=== PATIENT | female | born 2000 | race Caucasian/White ===

== ENCOUNTER → 2021-05-13 12:58 | Outpatient (BNVA) | payer MEDICAID, SELFPAY | PROVIDERS: Visit Provider Specialist | DX: F81.9 Developmental disorder of scholastic skills, unspecified (principal); R56.9 Unspecified convulsions | CPT/HCPCS: 95816 ==

== ENCOUNTER → 2021-05-14 09:58 | Outpatient (BNVA) | payer MEDICAID, SELFPAY | PROVIDERS: Referring Provider Nurse Practitioner Family; Visit Provider Specialist | DX: S42.001A Fracture of unspecified part of right clavicle, initial encounter for closed fracture (principal); X58.XXXA Exposure to other specified factors, initial encounter | CPT/HCPCS: 73000 ==

== ENCOUNTER → 2021-06-10 08:54 | Outpatient (BNVA) | payer MEDICAID, SELFPAY | PROVIDERS: Visit Provider Specialist | DX: S42.034A Nondisplaced fracture of lateral end of right clavicle, initial encounter for closed fracture (principal); X58.XXXA Exposure to other specified factors, initial encounter | CPT/HCPCS: 73000 ==

== ENCOUNTER 2021-07-28 13:22 | Emergency (ER) | payer MEDICAID, SELFPAY ==
[2021-07-28 13:50] VITALS: BP 120/84; PULSE 87; RESP 16; TEMP 36.9; O2SAT 98; BMI 31.7
--- NOTE | 2021-07-28 14:00 | ED_ITS ---
HPI - Head Injury General: Chief complaint: Head Injury Stated complaint: H/A AFTER FALL HITTING HEAD Time Seen by Provider: 07/28/21 13:32 History of Present Illness: HPI Narrative: Patient is a 21-year-old female comes to the ED with a head injury after fall. Head injury occurred yesterday. She was bending over and lost balance and fell forward and hit her forehead on the ground. Denies any loss of consciousness. Patient does have a headache and a contusion on forehead. Denies any vomiting or change in behavior. Mother is present says patient does have a mental disability and seizures. Associated symptoms: Deny nausea, neck pain or vomiting Review of Systems Const: Denies: fever(s), chills or fatigue Eyes: Denies: change in vision or eye discomfort ENMT: Denies: throat pain, odynophagia, nasal discharge or nasal congestion Card: Denies: chest pain, palpitations, edema, swelling of feet/ankles, dyspnea on exertion or orthopnea Resp: Denies: dyspnea, productive cough or non-productive cough GI: Denies: abdominal pain, nausea, vomiting, diarrhea, constipation or hematochezia : Denies: flank pain, dysuria or hematuria Musc: Denies: neck pain, back pain or extremity swelling Skin/Breast: Denies: rash or new lesions Neuro: Reports: headache(s); Denies: numbness in extremities or weakness in extremities PFSH ED PFSH: Medical History Learning disability Seizures Surgical History Gastrostomy tube in place removed 10/13/20 Family History Sister Cancer breast Other CAD (coronary artery disease) Denies family history of Diabetes Anesthesia complication Bleeding disorder Social History Smoking and tobacco status: never smoked Alcohol intake: never Household members: family Marital status: Single Current occupational status: disabled Female Reproductive History: Date of last menstrual period: 07/24/21 Physical Exam Const: COMMON NORMALS: no acute distress, patient oriented x3 and alert EXAM LIMITATIONS: other limitations (Patient has mental disability.) GENERAL APPEARANCE: cooperative and comfortable HENMT: COMMON NORMALS: normocephalic HEAD & SCALP: normocephalic and hematoma right frontal Head hematoma size: 1 cm MOUTH: Normal oral and palatal mucosa present THROAT: posterior oropharynx normal and uvula midline Eye: COMMON NORMALS: Equal, round and reactive pupils present, EOMs intact bilaterally and conjunctivae normal CONJUNCTIVA: Yes conjunctivae normal PUPIL: Yes Equal, round and reactive pupils present Neck/C-Spine: COMMON NORMALS: supple GENERAL: Yes normal visual inspection Resp: COMMON NORMALS: normal respiratory effort, No retractions, No use of a ccessory muscles and clear to auscultation bilaterally AUSCULTATION: clear to auscultation bilaterally Cardio: COMMON NORMALS: regular rate, regular rhythm, S1 normal heart sound present, S2 normal heart sound present, No gallops present (Cardio), No clicks present (Cardio), No murmurs present (Cardio) and Peripheral pulses 2+ throughout RATE: regular rate RHYTHM: regular rhythm HEART SOUNDS: S1 normal heart sound present and S2 normal heart sound present PERIPHERAL PULSES: Peripheral pulses 2+ throughout GI: COMMON NORMALS: Normal to inspection, nondistended, normoactive bowel sounds present, Soft to palpation, non-tender and no masses PALPATION: Yes Soft to palpation : COMMON NORMALS: Yes no CVA tenderness BLADDER/KIDNEY EXAM: Yes no CVA tenderness Back/Pelvis: COMMON NORMALS: no CVA tenderness Extremity: COMMON NORMALS: normal to inspection Neuro: COMMON NORMALS: patient oriented x3 and moves all extremities SENSORIUM/ORIENTATION: Yes alert Skin: GENERAL SKIN EXAM: dry skin Course Vital Signs: Vital signs: Vital Signs Temperature 98.5 F 07/28/21 13:50 Pulse Rate 87 07/28/21 14:04 Respiratory Rate 16 07/28/21 14:04 Blood Pressure 120/84 07/28/21 14:04 Pulse Oximetry 95 07/28/21 14:04 MDM - Head Injury MDM Narrative: Medical decision making narrative: Patient is a 21-year-old female comes to the ED after she fell and hit her head. Patient was leaning forward to pick something up and then fell forward hitting her head on the ground. No loss of consciousness and patient is just been complaining of having a headache and a sore spot on right frontal region of scalp. Patient has a past medical history of mental disability and seizures. Patient has a small right frontal hematoma approximately 1 cm in size. Vitals are stable. CT of head showed no acute findings. Patient was diagnosed with a minor head injury w ithout loss of consciousness and discharged home. Mother was told to have patient follow-up with PCP in 7 to 10 days for reevaluation. Return to ED precautions given. Patient and patient's mother understood and agreed with plan. Imaging Data^: CT Head: Attestation: I personally reviewed and interpreted this imaging study as follow s: Radiologist's impression: [facility] [address] [place] [address] CT Scan Report Signed Patient: Padmini Zimmerman Unit #: [id number] : 2000 Age/Sex: 21 / F ADM Date: 07/28/21 Loc: ER Room/Bed: Attending Dr: Ordering Provider/Ordering MD: Sohan aRmsay Date of Service: 07/28/21 Procedure(s): CT head wo con* [id number] Accession Number(s): [id number] Report Number: [id number] PROCEDURE INFORMATION: Exam: CT Head Without Contrast Exam date and time: 07/28/2021 1:59 PM Age: 21 years old Clinical indication: Injury or trauma; Fall; Blunt trauma (contusions or hematomas); Without loss of consciousness; Injury details: Hit right side of forehead; Additional info: Fall with hematoma on head TECHNIQUE: Imaging protocol: Computed tomography of the head without contrast. Axial, coronal and sagittal reformatted images were created and reviewed. Radiation optimization: All CT scans at this facility use at least one of these dose optimization techniques: automated exposure control; mA and/or kV adjustment per patient size (includes targeted exams where dose is matched to clinical indication); or iterative reconstruction. COMPARISON: No relevant prior studies available. RADIATION DOSE METRICS: Total DLP (mGy-cm): 709.27 FINDINGS: Brain: No CT evidence of acute intracranial hemorrhage or acute territorial infarction. No significant mass effect or midline shift. Basal cisterns patent. Cerebral ventricles: Prominence of the cortical sulci, cisterns and ventricular system, consistent with cerebral and cerebellar volume loss. Paranasal sinuses: Minimal ethmoid mucosal thickening. No fluid levels. Mastoid air cells: Grossly unremarkable. Bones/joints: No acute osseous abnormality. Soft tissues: Grossly unremarkable. CT/CT head wo con* [id number]: 1[address] No CT evidence of acute intracranial pathology. 2. Additional findings, as above. Radiation Dose CTDIVOL = (mGy): DLP = 709.27 (mGy-cm) Dictated By: Santy Lau MD Signed By: Santy Lau MD Signed Date/Time: 07/28/21 1510 DD/ 1359 Discharge Plan Discharge Patient Disposition: Home Clinical Impression: Minor head injury without loss of consciousness Qualifiers: Encounter type: initial encounter Qualified Code(s): S09.90XA - Unspecified injury of head, initial encounter Condition: Stable Prescriptions: No Action levetiracetam [Keppra] 750 mg tablet 1,500 mg PO BID RF: 0 Vimpat 200 mg tablet 200 mg PO BID RF: 0 valproic acid 250 mg capsule 750 mg PO TID RF: 0 Discharge Orders: Discharge ED (Routine); Ordered 07/28/21 Ordered By: Sohan Ramsay Referrals: Keesha Jorgensen [Primary Care Provider] - Discharge Diet: Regular Discharge Activity: Resume usual activity Patient Instructions: Head Injury (ED) Activity Restrictions/Additional Instructions: Follow-up with medical provider as directed in 7 to 10 days for reevaluation. Continue taking all home medications as previously prescribed. Return to the ER or your medical provider if condition worsens. Please read and understand discharge instructions. Thank you for choosing [facility] for your healthcare needs today. Please realize this is an emergency room and that we are providing you with a medical screening exam and this may not be complete and all inclusive of all the testing and or work up that you may need to determine your ailment or severity of your illness. It is very important that you follow up as instructed or that you return to the Emergency Department should you have concerns or if your condition changes or worsens in any way. Coding Level of Care Code ED Rail Signal Designer for Parth Rosario Exam Comprehensive
[2021-07-28 14:04] VITALS: BP 120/84; PULSE 87; RESP 16; O2SAT 95
== END 2021-07-28 15:55 | disposition home or self-care (01) ==
PROVIDERS: Emergency Provider Physician Assistant; PCP Internal Medicine
DX: S00.83XA Contusion of other part of head, initial encounter (principal); W18.30XA Fall on same level, unspecified, initial encounter; R56.9 Unspecified convulsions; F81.9 Developmental disorder of scholastic skills, unspecified
CPT/HCPCS: 70450; 99282

== ENCOUNTER 2021-10-15 16:21 | Emergency (ER) | payer MEDICAID, SELFPAY ==
[2021-10-15 16:30] VITALS: BP 115/80; PULSE 90; RESP 14; TEMP 36.6; O2SAT 98
--- NOTE | 2021-10-15 16:40 | XR_ITS ---
WS: [id number] [id number] REASON FOR EXAM: fall FINDINGS: Significant deformity and bony overgrowth of the distal end of the right clavicle. This is a result o f a previous fracture of the right clavicle, 05/05/2021, with healing. No definite acute abnormality. XR/[place] [id number] IMPRESSION: Old healed fracture distal right clavicle. Acute abnormality.
--- NOTE | 2021-10-15 16:40 | XR_ITS ---
WS: [id number] [id number] REASON FOR EXAM: fall FINDINGS: No fracture of the right humerus. Normal alignment of the glenohumeral joint. XR/[place] [id number] IMPRESSION: No acute abnormality.
--- NOTE | 2021-10-15 16:40 | W.ED.EXTPRO ---
HPI - Extremity Problem General: Chief complaint: Extremity Injury, Upper Stated complaint: right shoulder injury Time Seen by Provider: 10/15/21 16:37 History of Present Illness: HPI Narrative: Patient fell yesterday injuring right shoulder. Patient had a seizure which she has on a fairly frequent basis. Patient is not verbalizing but does point to the upper arm area that hurts and then mother says that her clavicle seems more pronounced. MD Complaint: extremity pain Onset (ago): hour(s) Pain Consistency: other (Hard to determine) Location: right and upper extremity Associated symptoms: Deny fever(s) Review of Systems Const: Denies: fever(s) or chills Resp: Denies: dyspnea Musc: Reports: extremity pain (Upper part right arm from a fall yesterday) Neuro: Denies: headache(s), lack of coordination or difficulty walking PFS ED PFSH: Medical History Learning disability Seizures Surgical History Gastrostomy tube in place removed 10/13/20 Family History Sister Cancer breast Other CAD (coronary artery disease) Denies family history of Diabetes Anesthesia complication Bleeding disorder Social History Smoking and tobacco status: never smoked Alcohol intake: never Household members: family Marital status: Single Current occupational status: disabled Female Reproductive History: Date of last menstrual period: 07/24/21 Physical Exam Const: COMMON NORMALS: no acute distress GENERAL APPEARANCE: cooperative Extremity: RIGHT UPPER EXTREMITY: Yes clavicle (Bony aspect to the proximal aspect of the clavicle.) Right clavicle: Yes neurovascular exam (Intact) and Yes other (I am able to move the arm freely. Patient does not wince or pull away) and Yes upper arm (Tenderness with palpation , no marked swelling) Neuro: RANJITH COMA SCALE: other (Patient is not verbalizing to me., , Patient appears very shy, is disabled) Skin: COMMON NORMALS: no rashes or lesions noted GENERAL SKIN EXAM: no rashes or lesions noted Course Vital Signs: Vital signs: Vital Signs Temperature 97.9 F 10/15/21 16:30 Pulse Rate 90 10/15/21 16:30 Respiratory Rate 14 10/15/21 16:30 Blood Pressure 115/80 10/15/21 16:30 Pulse Oximetry 98 10/15/21 16:30 Discharge Plan Discharge Patient Disposition: Home Clinical Impression: Arm pain, right Condition: Stable Prescriptions: New Celebrex 100 mg capsule 100 mg PO BID Qty: 20 RF: 0 No Action levetiracetam [Keppra] 750 mg tablet 1,500 mg PO BID RF: 0 Vimpat 200 mg tablet 200 mg PO BID RF: 0 valproic acid 250 mg capsule 750 mg PO TID RF: 0 Discharge Orders: Discharge ED (Routine); Ordered 10/15/21 Ordered By: Chuy Lopez Referrals: Keesha Jorgensen [Primary Care Provider] - Discharge Diet: Usual diet Discharge Activity: Increase activity as tolerated Activity Restrictions/Additional Instructions: Follow-up with medical provider as directed. Take medications as prescribed. Return to the ER or your medical provider if condition worsens. Please read and understand discharge instructions. If any questions ask please. Wear sling as needed follow-up primary care provider apply ice to area as needed. Coding Level of Care Code ED Labor Operator for Chg Fwd Exam Expanded Problem Focused
== END 2021-10-15 17:22 | disposition home or self-care (01) ==
PROVIDERS: Emergency Provider Nurse Practitioner Family; PCP Internal Medicine
DX: M79.601 Pain in right arm (principal)
CPT/HCPCS: 73000; 73060; 99282

== ENCOUNTER 2021-11-12 13:55 | Emergency (ER) | payer MEDICAID, SELFPAY ==
[2021-11-12 14:36] VITALS: BP 135/90; PULSE 94; RESP 20; TEMP 36.6; O2SAT 98; BMI 30.8
--- NOTE | 2021-11-12 17:05 | ED_ITS ---
HPI - Skin/Abscess/Foreign Bdy General: Chief complaint: Skin/Abscess/Foreign Body Stated complaint: Possible infection on both feet Toes Time Seen by Provider: 11/12/21 17:04 History of Present Illness: 21-year-old female patient comes in today with complaints of pain and tenderness to bilateral great toes, worse when it is on the right. Mother reports chronic problem with ingrown toenails. They have tried some topical antibiotics and different therapies with minimal relief. M other was concerned that patient may be having a worsening infection due to patient's increased pain and discomfort. Patient does have a history of learning disabilities and epilepsy. Review of Systems General: Reports: 10 or more systems reviewed and unremarkable except in HPI and below Musc: Reports: extremity pain (Right foot pain) Skin/Breast: Reports: erythema PFSH ED PFSH: Medical History Learning disability Seizures Surgical History Gastrostomy tube in place removed 10/13/20 Family History Sister Cancer breast Other CAD (coronary artery disease) Denies family history of Diabetes Anesthesia complication Bleeding disorder Social History Smoking and tobacco status: never smoked Alcohol intake: never Household members: family Marital status: Single Current occupational status: disabled Female Reproductive History: Date of last menstrual period: 07/24/21 Physical Exam Const: COMMON NORMALS: alert Lymph: LYMPHATIC: no lymphadenopathy noted Resp: COMMON NORMALS: normal respiratory effort Cardio: COMMON NORMALS: regular rate and regular rhythm RATE: regular rate RHYTHM: regular rhythm Extremity: RIGHT LOWER EXTREMITY: Yes foot & digits (Increased redness and inflammation bilateral nailbed) Right foot and digits: Yes inspection, Yes palpation and Yes ROM LEFT LOWER EXTREMITY: Yes foot & digits (Mild redness to lateral nailbed of great toe) Left foot and digits: Yes inspection, Yes palpation and Yes ROM Neuro: SENSORIUM/ORIENTATION: Yes alert Psych: COMMON NORMALS: cooperative Skin: NAILS: normal Course Vital Signs: Vital signs: Vital Signs Temperature 97.9 F 11/12/21 14:36 Pulse Rate 94 11/12/21 14:36 Respiratory Rate 20 H 11/12/21 14:36 Blood Pressure 135/90 11/12/21 14:36 Pulse Oximetry 98 11/12/21 14:36 MDM - Skin/Abscess/Foreign Bdy Medicial Decision Making 21-year-old female comes in with ingrown toenails with increased redness and pain to the right foot. On exam patient has redness and swelling to the right great toe that is just localized to the nail area. Left great toe also has some mild redness but not as significant as the right. No redness extends to the foot or to the leg. Pulses are intact. Sensation is intact. Differential diagnosis ingrown toenail with infections, uncomplicated ingrown toenail, injury. No sign of significant injury or illness is noted. We will go ahead and start patient on Bactrim DS 1 tablet twice a day for next 7 days to cover for MRSA. Reviewed exam with mother with recommendations for follow-up with podiatry for further treatment of the ingrown toenail. Mother reports understanding and agreed to plan. Discharge Plan Discharge Patient Disposition: Home Clinical Impression: Ingrown toenail of right foot with infection Condition: Stable Prescriptions: New Bactrim DS 800-160 mg tablet 1 tab PO DAILY 7 Days Qty: 14 0RF No Action levetiracetam [Keppra] 750 mg tablet 1,500 mg PO BID 0RF Vimpat 200 mg tablet 200 mg PO BID 0RF valproic acid 250 mg capsule 750 mg PO TID 0RF Celebrex 100 mg capsule 100 mg PO BID Qty: 20 0RF Discharge Orders: Discharge ED (Routine); Ordered 11/12/21 Ordered By: Harjeet Stern Referrals: Keesha Jorgensen [Primary Care Provider] - Discharge Diet: Usual diet Discharge Activity: Increase activity as tolerated Patient Instructions: Ingrown Nail (ED) Activity Restrictions/Additional Instructions: Ten you with soaking treatments at home as you have been doing. Give Bactrim DS 1 tablet twice a day for the next 5 to 7 days. Case management will contact you regarding follow-up appointment with podiatry for further treatment. Return to the ER for new concerns or worsening symptoms such as high fever, increasing redness and swelling going up the foot and leg. Coding Level of Care Code ED Manager Recovery for Parth Rosario
--- NOTE | 2021-11-13 11:34 | DCPLANNER ---
Addendum entered by Fatuma Balderas 11/27/21 22:22: Patient had a follow up appointment scheduled for 11.16.[address] Wan at ortho - patient did attend appointment. Original Note: amusement centre manager had message to schedule a follow up appointment for patient with ortho. amusement centre manager called the ortho clinic, spoke with Lani, gave clinic patients information. amusement centre manager was told that patients information would be printed and reviewed. Clinic will call patient with appointment information.
== END 2021-11-12 18:04 | disposition home or self-care (01) ==
PROVIDERS: Emergency Provider Nurse Practitioner Family; PCP Internal Medicine
DX: L60.0 Ingrowing nail (principal)
CPT/HCPCS: 99281

== ENCOUNTER 2021-12-25 22:30 | Emergency (ER) | payer MEDICAID, SELFPAY ==
[2021-12-25 22:35] VITALS: BP 122/86; PULSE 85; RESP 96; TEMP 36.8; O2SAT 96; BMI 31.3
--- NOTE | 2021-12-25 23:35 | CTR_ITS ---
PROCEDURE INFORMATION: Exam: CT Head Without Contrast Exam date and time: 12/25/2021 11:46 PM Age: 21 years old Clinical indication: Injury or trauma; Blunt trauma (contusions or hematomas); Consciousness not specified; Patient HX: Drop seizure w fall - abrasion to R forehead; Additional info: Fall head inj TECHNIQUE: Imaging protocol: Computed tomography of the head without contrast. Radiation optimization: All CT scans at this facility use at least one of these dose optimization techniques: automated exposure control; mA and/or kV adjustment per patient size (includes targeted exams where dose is matched to clinical indication); or iterative reconstruction. COMPARISON: CT head wo con* [id number] 07/28/2021 2:40 PM RADIATION DOSE METRICS: Total DLP (mGy-cm): 965.01 FINDINGS: Brain: Normal. No hemorrhage. Unremarkable white matter. No mass effect. Cerebral ventricles: No ventriculomegaly. Paranasal sinuses: Visualized sinuses are unremarkable. No fluid levels. Mastoid air cells: Visualized mastoid air cells are well aerated. Bones/joints: No acute findings. Soft tissues: Mild soft tissue swelling lower frontal region. CT/CT head wo con* [id number] IMPRESSION: No acute intracranial abnormality.
--- NOTE | 2021-12-25 23:40 | ED_ITS ---
Documented by User: TREV Perez 12/26/21 00:58 HPI - Fall General: Chief Complaint: Fall Stated Complaint: Injury Head Time Seen by Provider: 12/25/21 23:39 History of Present Illness: 21-year-old female comes in today with complaints of injury sustained during a fall. Patient has difficulties with ambulation at times and has frequent falls due to seizures and learning disability. Guardian reports this is not abnormal for her. Patient was walking with guardian tonight and usually has to wear a helmet just in case but had gone without her helmet. Patient had fallen forward and had struck the right side of her forehead. No loss of consciousness was noted. No obvious seizures were noted. Patient is alert and responding to questions. Patient appears nontoxic. Patient appears in mild to no pain. Onset (ago): hour(s) Fall from: standing Loss of consciousness: None Location of injury: head Severity: mild Associated symptoms-after fall: Reports headache(s); Denies chest pain or neck pain Review of Systems General: Reports: 10 or more systems reviewed and unremarkable except in HPI and below Const: Denies: fever(s) Card: Denies: chest pain Resp: Denies: dyspnea Musc: Denies: neck pain Skin/Breast: Reports: new lesions (Abrasion right forehead) Neuro: Reports: headache(s) PFS ED PFSH: Medical History Learning disability Seizures Surgical History Gastrostomy tube in place removed 10/13/20 Family History Sister Cancer breast Other CAD (coronary artery disease) Denies family history of Diabetes Anesthesia complication Bleeding disorder Social History Smoking and tobacco status: never smoked Alcohol intake: never Household members: family Marital status: Single Current occupational status: disabled Female Reproductive History: Date of last menstrual period: 07/24/21 Physical Exam Const: COMMON NORMALS: alert HENMT: COMMON NORMALS: TM's normal bilaterally and Normal external nose present HEAD & SCALP: abrasion (Right forehead); no palpable skull fracture FACE & SINUS: normal facial exam NOSE: Normal external nose present and Normal nares present TYMPANIC MEMBRANE: TM's normal bilaterally MOUTH: Normal oral and palatal mucosa present THROAT: posterior oropharynx normal Neck/C-Spine: COMMON NORMALS: full ROM Resp: COMMON NORMALS: normal respiratory effort and clear to auscultation bilaterally AUSCULTATION: clear to auscultation bilaterally Cardio: COMMON NORMALS: regular rate and regular rhythm RATE: regular rate RHYTHM: regular rhythm GI: COMMON NORMALS: Normal to inspection, nondistended, normoactive bowel sounds present Extremity: COMMON NORMALS: normal to inspection Neuro: SENSORIUM/ORIENTATION: Yes alert Psych: COMMON NORMALS: cooperative Skin: TRAUMA: abrasion (4 x 2 area of abrasion right forehead) Course Vital Signs: Vital signs: Vital Signs Temperature 98.2 F 12/25/21 22:35 Pulse Rate 85 12/26/21 00:03 Respiratory Rate 16 12/26/21 00:03 Blood Pressure 131/89 12/26/21 00:03 Pulse Oximetry 99 12/26/21 00:03 MDM - Fall Medical Decision Making 21-year-old female comes in for evaluation of injuries that occurred at around 7:00 this evening. Patient has an abrasion to her right forehead. No loss of consciousness was noted. Differential diagnosis includes intracranial bleeding, skull fracture, head injury, seizure disorder. Patient does routinely have seizures mother reports that she may have had a absence seizure but did not see a full grand mall seizure. Patient is acting appropriate. CT of the head was negative for intracranial bleeding or skull fracture. Reviewed exam with mother with recommendations for monitoring and follow-up. She reported understanding agreed to plan. Lab Data Radiology Impressions Head CT 12/25/21 23:35 IMPRESSION: No acute intracranial abnormality. Discharge Plan Discharge Patient Disposition: Home Clinical Impression: Seizures Head injury Qualifiers: Encounter type: initial encounter Qualified Code(s): S09.90XA - Unspecified injury of head, initial encounter Abrasion of face Qualifiers: Encounter type: initial encounter Qualified Code(s): S00.81XA - Abrasion of other part of head, initial encounter Condition: Stable Prescriptions: No Action levetiracetam [Keppra] 750 mg tablet 1,500 mg PO BID 0RF Vimpat 200 mg tablet 200 mg PO BID 0RF valproic acid 250 mg capsule 750 mg PO TID 0RF mupirocin 2 % ointment 1 applic topical BID 14 Days Qty: 22 2RF mupirocin 2 % ointment 1 applic topical BID 14 Days Qty: 22 2RF mupirocin 2 % ointment 1 applic topical BID 30 Days Qty: 22 2RF Celebrex 100 mg capsule 100 mg PO BID Qty: 20 0RF Discharge Orders: Discharge ED (Routine); Ordered 12/26/21 Ordered By: Harjeet Stern Referrals: Keesha Jorgensen [Primary Care Provider] - Discharge Diet: Usual diet Discharge Activity: Increase activity as tolerated Patient Instructions: Abrasion (ED) Activity Restrictions/Additional Instructions: Activity as tolerated. Keep wounds clean and dry. Use acetaminophen or ibuprofen for pain. Follow-up with primary care in 3 days for recheck. Return to ED as needed. Coding Level of Care Code ED Park Worker for Chg Fwd Exam Comprehensive Documented by User: Miguel Whittington DO 12/26/21 01:27 HPI - Fall General: Chief Complaint: Fall Stated Complaint: Injury Head Time Seen by Provider: 12/25/21 23:39 COUNTS INCLUDE 234 BEDS AT THE [facility] ED PFSH: Medical History Learning disability Seizures Surgical History Gastrostomy tube in place removed 10/13/20 Family History Sister Cancer breast Other CAD (coronary artery disease) Denies family history of Diabetes Anesthesia complication Bleeding disorder Social History Smoking and tobacco status: never smoked Alcohol intake: never Household members: family Marital status: Single Current occupational status: disabled Course Vital Signs: Vital signs: Vital Signs Temperature 98.2 F 12/25/21 22:35 Pulse Rate 85 12/26/21 00:03 Respiratory Rate 16 12/26/21 00:03 Blood Pressure 131/89 03/26/22 00:03 Pulse Oximetry 99 12/26/21 00:03 MDM - Fall Medical Decision Making 21-year-old female comes in for evaluation of injuries that occurred at around 7:00 this evening. Patient has an abrasion to her right forehead. No loss of consciousness was noted. Differential diagnosis includes intracranial bleeding, skull fracture, head injury, seizure disorder. Patient does routinely have seizures mother reports that she may have had a absence seizure but did not see a full grand mall seizure. Patient is acting appropriate. CT of the head was negative for intracranial bleeding or skull fracture. Reviewed exam with mother with recommendations for monitoring and follow-up. She reported understanding agreed to plan. This patient was originally seen by TREV Chamberlain.? I agree with his history, evaluation, and treatment. Lab Data Radiology Impressions Head CT 12/25/21 23:35
[2021-12-26 00:03] VITALS: BP 131/89; PULSE 85; RESP 16; O2SAT 99
[2021-12-26] MEDS: acetaminophen 500 mg Tablet 1000 MG PO (00:13)
== END 2021-12-26 01:06 | disposition home or self-care (01) ==
PROVIDERS: Emergency Provider Nurse Practitioner Family; PCP Internal Medicine
DX: S00.81XA Abrasion of other part of head, initial encounter (principal); S09.90XA Unspecified injury of head, initial encounter; R56.9 Unspecified convulsions; W18.30XA Fall on same level, unspecified, initial encounter
CPT/HCPCS: 70450; 99283

== ENCOUNTER → 2022-02-11 08:26 | Outpatient (BNVA) | payer MEDICAID, SELFPAY | PROVIDERS: PCP Internal Medicine; Visit Provider Podiatrist Foot & Ankle Surgery | DX: L60.0 Ingrowing nail (principal) | CPT/HCPCS: 11750 ==

== ENCOUNTER → 2022-02-25 08:12 | Outpatient (BNVA) | payer MEDICAID, SELFPAY | PROVIDERS: PCP Internal Medicine; Visit Provider Podiatrist Foot & Ankle Surgery | DX: L60.0 Ingrowing nail (principal); Z98.890 Other specified postprocedural states | CPT/HCPCS: 99213 ==

== ENCOUNTER 2022-06-27 16:44 | Emergency (ER) | payer MEDICAID, SELFPAY ==
[2022-06-27 16:45] VITALS: BMI 30.4
--- NOTE | 2022-06-27 17:03 | ED_ITS ---
HPI - Headache General: Chief Complaint: Headache Stated Complaint: fall, hit head, head pain Time Seen by Provider: 06/27/22 16:56 History of Present Illness: 22-year-old female with a history of learning disability and seizures comes in today with concerns for head injury and compla ints of headache. Mother is concerned that the child may have injured herself during one of her drop spells yesterday or today. Mother states that the family has been under more stress due to some issues with a neighbor that has caused more of the child's seizure-like episodes. On exam patient appears nontoxic. Patient is withdrawn which is normal for her. No obvious injury is seen. Associated symptoms: Deny chest pain, fever(s) or vomiting Review of Systems Const: Denies: fever(s) Card: Denies: chest pain Resp: Denies: dyspnea GI: Denies: vomiting Neuro: Reports: headache(s) [facility] ED PFSH: Medical History Learning disability Seizures Surgical History Gastrostomy tube in place removed 10/13/20 Family History Sister Cancer breast Other CAD (coronary artery disease) Denies family history of Diabetes Anesthesia complication Bleeding disorder Social History Smoking and tobacco status: never smoked Alcohol intake: never Household members: family Marital status: Single Current occupational status: disabled Female Reproductive History: Date of last menstrual period: 06/06/22 Physical Exam Const: COMMON NORMALS: alert HENMT: COMMON NORMALS: atraumatic, TM's normal bilaterally and Normal external nose present HEAD & SCALP: atraumatic NOSE: Normal external nose present TYMPANIC MEMBRANE: TM's normal bilaterally MOUTH: Normal oral and palatal mucosa present Neck/C-Spine: COMMON NORMALS: full ROM Resp: COMMON NORMALS: normal respiratory effort Cardio: COMMON NORMALS: regular rate RATE: regular rate Back/Pelvis: COMMON NORMALS: thoracic and lumbar spine normal to inspection Extremity: COMMON NORMALS: normal to inspection Neuro: SENSORIUM/ORIENTATION: Yes alert Skin: COMMON NORMALS: turgor normal GENERAL SKIN EXAM: turgor normal Course Vital Signs: Vital signs: Vital Signs Oxygen Delivery Me valeriood 06/27/22 16:45 MDM - Headache Medical Decision Making Patient was brought in for persistent headache for the last 24 to 48 hours. Mother states increase in seizure activity due to the stress. She was concerned that due to the more frequent seizures and hitting her head she thought she might of caused intracranial bleeding or concussion. On exam patient is a poor historian due to her behavioral and intellectual disabilities. No focal neural deficits were noted. Vital signs were normal. Differential diagnosis includes but not limited to intracranial bleeding, skull fracture, concussion, headache post trauma. CT of the head was unremarkable. Patient was given 400 mg of Celebrex x1 for headache. Encourage fluids rest and follow-up with primary care. I had ordered Reglan for the patient's headache but discontinued after seeing that may lower threshold for seizures. Mother reported understanding of care plan and need for follow-up or return to the ER. Lab Data Radiology Impressions Head CT 06/27/22 17:10 IMPRESSION: No acute intracranial abnormality. Discharge Plan Discharge Patient Disposition: Home Clinical Impression: Headache Qualifiers: Headache type: post-traumatic Condition: Stable Prescriptions: No Action levetiracetam [Keppra] 750 mg tablet 1,500 mg PO BID Vimpat 200 mg tablet 200 mg PO BID valproic acid 250 mg capsule 750 mg PO TID Discharge Orders: Discharge ED (Routine); Ordered 06/27/22 Ordered By: Harjeet Stern Referrals: Keesha Jorgensen [Primary Care Provider] - Discharge Diet: Usual diet Discharge Activity: Increase activity as tolerated Patient Instructions: Concussion (ED) Activity Restrictions/Additional Instructions: Home and rest. Activity as tolerated. Use acetaminophen or ibuprofen for pain. Follow-up with primary care for further instruction. Return to ER for new concerns, or worsening symptoms. Coding Level of Care Code ED Naphthalene Operator for Parth Fwd Exam Comprehensive
--- NOTE | 2022-06-27 17:10 | CTR_ITS ---
PROCEDURE INFORMATION: Exam: CT Head Without Contrast Exam date and time: 06/27/2022 5:27 PM Age: 22 years old Clinical indication: Injury or trauma; Fall; Blunt trauma (contusions or hematomas) and other: Seizure; Without loss of consciousness; Additional info: Head injury TECHNIQUE: Imaging protocol: Computed tomography of the head without contrast. Radiation optimization: All CT scans at this facility use at least one of these dose optimization techniques: automated exposure control; mA and/or kV adjustment per patient size (includes targeted exams where dose is matched to clinical indication); or iterative reconstruction. COMPARISON: CT head wo con* [id number] 12/25/2021 11:46 PM RADIATION DOSE METRICS: Total DLP (mGy-cm): 1215.28 FINDINGS: Brain: No hemorrhage. No edema. Unremarkable white matter. No mass effect. Cerebral ventricles: No ventriculomegaly. Paranasal sinuses: Visualized sinuses are unremarkable. No fluid levels. Mastoid air cells: Visualized mastoid air cells are well aerated. Bones/joints: Unremarkable. No acute fracture. Soft tissues: Unremarkable. CT/CT head wo con* [id number] IMPRESSION: No acute intracranial abnormality.
[2022-06-27] MEDS: CELEcoxib 200 mg Capsule 400 MG PO (17:51)
[2022-06-27 18:26] VITALS: BP 119/75; PULSE 75; RESP 18; O2SAT 97
== END 2022-06-27 18:28 | disposition home or self-care (01) ==
PROVIDERS: Emergency Provider Nurse Practitioner Family; PCP Internal Medicine
DX: G44.309 Post-traumatic headache, unspecified, not intractable (principal); R56.9 Unspecified convulsions; F81.9 Developmental disorder of scholastic skills, unspecified
CPT/HCPCS: 70450; 99284

== ENCOUNTER 2022-12-18 16:27 | Emergency (ER) | payer MEDICAID, SELFPAY ==
[2022-12-18 16:48] VITALS: BP 135/94; PULSE 93; RESP 15; TEMP 37.1; O2SAT 99; BMI 30.5
--- NOTE | 2022-12-18 18:50 | ED_ITS ---
HPI - Animal Bite General: Chief Complaint: Animal Bite Stated Complaint: bite on right hand Time Seen by Provider: 12/18/22 18:48 History of Present Illness: 22-year-old female comes in today for complaints of concerns of a possible bat bite to the dorsal right hand. There is known to be bats in the house and attic in which the patient and her mother resides. Patient is awake and with a bite to her hand and it is concerned that when the bats bit her there while she slept. Patient appears nontoxic. Incident occurred within the last 48 hours. Tetanus is unknown on up-to-date. Patient does have a seizure disorder and takes Keppra, valproic acid, and Vimpat. Review of Systems General: Reports: 10 or more systems reviewed and unremarkable except in HPI and below Card: Denies: chest pain Resp: Denies: dyspnea Musc: Reports: extremity pain Skin/Breast: Reports: new lesions [facility] ED PFSH: Medical History Learning disability Seizures Surgical History Gastrostomy tube in place removed 10/13/20 Family History Sister Cancer breast Other CAD (coronary artery disease) Denies family history of Diabetes Anesthesia complication Bleeding disorder Social History Smoking and tobacco status: never smoked Alcohol intake: never Household members: family Marital status: Single Current occupational status: disabled Physical Exam Const: COMMON NORMALS: alert HENMT: COMMON NORMALS: normocephalic HEAD & SCALP: normocephalic Neck/C-Spine: COMMON NORMALS: full ROM Resp: COMMON NORMALS: normal respiratory effort and clear to auscultation bilaterally AUSCULTATION: clear to auscultation bilaterally Cardio: COMMON NORMALS: regular rate and regular rhythm RATE: regular rate RHYTHM: regular rhythm Extremity: RIGHT UPPER EXTREMITY: Yes hand & digits (2 puncture wounds noted to the dorsal right hand) Neuro: SENSORIUM/ORIENTATION: Yes alert Skin: COMMON NORMALS: turgor normal GENERAL SKIN EXAM: turgor normal Course Vital Signs: Vital signs: Vital Signs Temperature 98.8 F 12/18/22 16:48 Pulse Rate 93 03/18/23 16:48 Respiratory Rate 15 12/18/22 16:48 Blood Pressure 135/94 12/18/22 16:48 Pulse Oximetry 99 12/18/22 16:48 Oxygen Delivery Me thod 12/18/22 16:48 MDM - Animal Bite Medical Decision Making Patient comes in today with a puncture wounds to the dorsal right hand that possibly could be a bat bite. There is known bats to be in the attic and the ceiling of the room has holes in it which leads to the attic. Patient thinks that she was bit by a bat 2 nights ago. On exam there is some mild redness to a puncture wound to the dorsal right hand. Patient has good range of motion of the hand. Differential diagnosis includes abrasion, animal bite, for prophylaxis tetanus and need for postexposure rabies. We will go ahead and start the postexposure treatment for rabies, patient was also updated on her tetanus, and will be started on Augmentin. Patient and mother both reported understanding. Discharge Plan Discharge Patient Disposition: Home Clinical Impression: Bat bite wound Condition: Stable Prescriptions: New amoxicillin-pot clavulanate 875-125 mg tablet 1 tab PO BID Qty: 14 0RF No Action levetiracetam [Keppra] 750 mg tablet 1,500 mg PO BID Vimpat 200 mg tablet 200 mg PO BID valproic acid 250 mg capsule 750 mg PO TID Discharge Orders: Discharge ED (Routine); Ordered 12/18/22 Ordered By: Harjeet Stern Referrals: Keesha Jorgensen [Primary Care Provider] - Discharge Diet: Usual diet Discharge Activity: Increase activity as tolerated Patient Instructions: Animal Bite (ED) Activity Restrictions/Additional Instructions: Patient will need a completion of the rabies vaccine series on days 3, 7, and 14. She will need to follow-up with the urgent care center or the emergency department. Patient needs to take antibiotic Augmentin 1 tablet twice a day for 7 days. Drink plenty of water with medications. Follow-up with primary care for further instruction. Return to ED for new concerns. Coding Level of Care Code ED Community Affairs Manager for Parth Rosario
[2022-12-18 19:05] VITALS: BP 108/82; PULSE 80; RESP 16; O2SAT 100
[2022-12-18] MEDS: rabies vaccine 2.5 unit SDV IM (19:27)
[2022-12-18] MEDS: tetanus-diphtheria tox (adult) 0.5 mL SDV IM (19:29)
== END 2022-12-18 19:34 | disposition home or self-care (01) ==
PROVIDERS: Emergency Provider Nurse Practitioner Family; PCP Internal Medicine
DX: S61.431A Puncture wound without foreign body of right hand, initial encounter (principal); G40.909 Epilepsy, unspecified, not intractable, without status epilepticus; Z23 Encounter for immunization; Z29.14 Encounter for prophylactic rabies immune globulin; W55.81XA Bitten by other mammals, initial encounter; Y92.009 Unspecified place in unspecified non-institutional (private) residence as the place of occurrence of the external cause
CPT/HCPCS: 90375; 90471; 90675; 90714; 99284

== ENCOUNTER 2023-08-04 11:08 | Emergency (ER) | payer MEDICAID, SELFPAY ==
[2023-08-04 11:21] VITALS: BP 107/73; PULSE 80; RESP 16; TEMP 37.1; O2SAT 99; BMI 28.1
--- NOTE | 2023-08-04 11:38 | CT_ITS ---
WS: [id number] CT HEAD TECHNIQUE: Noncontrast CT of the head obtained from the skullbase to the vertex. CLINICAL INFORMATION: Closed head injury COMPARISON: 06/27/2022 DLP: 1361.[address] scans at [facility] use at least one of these dose optimization techniques: automated e xposure control; mA and/or kV adjustment per patient size (includes targeted exams where dose is matc hed to clinical indication); or iterative reconstruction. FINDINGS: No evidence of intracranial hemorrhage or mass effect. Ventricular system and basal cisterns are spring nt. Normal miguel-white differentiation. Chronic atrophy involving the vermis and cerebellar hemisphere s. This is unchanged. No hydrocephalus. Paranasal sinuses and mastoid air cells are well aerated. .Normal visualized soft tissues. IMPRESSION: 1. No evidence of intracranial hemorrhage or mass effect. 2. No acute intracranial findings.
[2023-08-04 11:55] VITALS: BP 102/72; PULSE 77; RESP 18; O2SAT 99
--- NOTE | 2023-08-04 12:01 | ED_ITS ---
HPI - Head Injury General: Chief complaint: Head Injury Stated complaint: head/neck injury, fall Time Seen by Provider: 08/04/23 11:28 Source: patient Mode of arrival: ambulatory History of Present Illness: 23-year-old female with reported history of seizure disorder fell at home evidently this happens frequently to grossly just spontaneously get what her mother calls the drops. She fell and hit the back of her head on a metal lawn chair that they had inside the house there is no loss of consciousness. No vomiting or nausea is happened about an hour to 2 hours prior to arrival. Patient has had a longstanding history of seizure disorder mother states there are various seizures of different types depending on the medication she is on mother cited several different locales through the years the patient has lived in that as she states has given her different diagnosis including somewhere in [place] other places in the [place]. No recent medication changes. Patient appears to have some developmental delay but when asked the mother she was not able to give me any specific diagnosis or name. MD Complaint: head injury Onset (ago): hour(s) Mechanism of Injury: fall Place: home Loss of Consciousness: no PFSH ED PFSH: Medical History Learning disability Seizures Surgical History Gastrostomy tube in place removed 10/13/20 Family History Sister Cancer breast Other CAD (coronary artery disease) Denies family history of Diabetes Anesthesia complication Bleeding disorder Social History Smoking and tobacco/nicotine status: never used tobacco/nicotine Alcohol intake: never Substance/Drug Use: never Household members: family Marital status: Single Current occupational status: disabled Course Vital Signs: Vital signs: Vital Signs Temperature 98.7 F 08/04/23 11:21 Pulse Rate 77 08/04/23 11:55 Respiratory Rate 18 08/04/23 11:55 Blood Pressure 102/72 08/04/23 11:55 Pulse Oximetry 99 08/04/23 11:55 Oxygen Delivery Me thod Room Air 08/04/23 11:55 MDM - Head Injury Medcial Decision Making CT head and neck negative. Patient has fairly significant follow-up mental disability and really unable to interact with her in a significant manner. Repeat exam unremarkable. Discharge home follow-up with primary care or with neurology continue current medications. Medical Records I reviewed the patient's medical records. Lab Data I reviewed the patient's lab results. All radiology interpretation(s) finalized by discharge Discharge Plan Discharge Patient Disposition: Home Clinical Impression: Closed head injury Condition: Stable Prescriptions: No Action levetiracetam [Keppra] 750 mg tablet 1,500 mg PO BID Vimpat 200 mg tablet 200 mg PO BID valproic acid 250 mg capsule 750 mg PO TID Discharge Orders: Discharge ED (Routine); Ordered 08/04/23 Ordered By: Tirso eBaver Referrals: Keesha Jorgensen [Primary Care Provider] - Discharge Diet: Usual diet Discharge Activity: Resume usual activity Patient Instructions: Opioid Safety, Pain Management Activity Restrictions/Additional Instructions: Thank you for choosing [facility] for your healthcare needs today. Please realize this is an emergency room and that we are providing you with a medical screening exam and this may not be complete and all inclusive of all the testing and or work up that you may need to determine your ailment or severity of your illness. It is very important that you follow up as instructed or that you return to the Emergency Department should you have concerns or if your condition changes or worsens in any way. You are seen today after a fall. Head CT did not show any acute changes. Continue your current medications follow-up with your primary care doctor Coding Level of Care Code ED Mechanical Assembly for Parth Rosario
--- NOTE | 2023-08-04 12:02 | CT_ITS ---
WS: [id number] CT CERVICAL TRAUMA TECHNIQUE: Noncontrast CT of the cervical spine with coronal and sagittal reformatted images. CLINICAL INFORMATION: trauma COMPARISON: None. DLP: 1361.[address] scans at [facility] use at least one of these dose optimization techniques: automated e xposure control; mA and/or kV adjustment per patient size (includes targeted exams where dose is matc hed to clinical indication); or iterative reconstruction. FINDINGS: Mild cervical curve. Normal craniocervical junction. Normal C1-C2 articulation. Dens is normal in arian earance. Normal occipital condyles. No high-grade spinal canal narrowing. Normal C1 ring. No evidence of acute fracture or dislocation. Normal prevertebral soft tissues. Mastoids air cells are well aerated. IMPRESSION: No evidence of acute fracture or dislocation.
== END 2023-08-04 13:10 | disposition home or self-care (01) ==
PROVIDERS: Emergency Provider Family Medicine; PCP Internal Medicine
DX: S09.8XXA Other specified injuries of head, initial encounter (principal); W18.39XA Other fall on same level, initial encounter
CPT/HCPCS: 70450; 72125; 99284

== ENCOUNTER 2024-01-18 11:29 | Emergency (ER) | payer MEDICAID, SELFPAY ==
[2024-01-18 11:35] VITALS: BP 157/93; PULSE 96; RESP 16; TEMP 36.6; O2SAT 96
[2024-01-18 12:00] VITALS: BP 128/84; PULSE 85; O2SAT 95
--- NOTE | 2024-01-18 12:03 | ED_ITS ---
HPI - Fall General: Chief Complaint: Fall Stated Complaint: neck and shoulder pain Time Seen by Provider: 01/18/24 11:59 Source: family Mode of arrival: ambulatory Limitations: no limitations History of Present Illness: 23-year-old female with mental handicap that mother states she thinks she had a triggered response and was angry and fell. She did hit her head has abrasion to the top of her head she is complained of some left shoulder and hand pain patient is nonverbal but will point. She has have abrasions to right hand she been amatory since the event this happened 3 hours ago. No neck pain. Review of Systems General: Reports: ROS unobtainable due to medical condition PFSH ED PFSH: Medical History Seizures Learning disability Surgical History Gastrostomy tube in place removed 10/13/20 Family History Sister Cancer breast Other CAD (coronary artery disease) Denies family history of Diabetes Anesthesia complication Bleeding disorder Social History Smoking and tobacco/nicotine status: never used tobacco/nicotine Alcohol intake: never Substance/Drug Use: never Household members: family Marital status: Single Current occupational status: disabled Female Reproductive History: Date of last menstrual period: 01/11/24 Physical Exam Const: COMMON NORMALS: no acute distress and healthy appearing HENMT: OTHER: abrasion to head Eye: COMMON NORMALS: Equal, round and reactive pupils present and EOMs intact bilaterally PUPIL: Yes Equal, round and reactive pupils present Neck/C-Spine: COMMON NORMALS: full ROM and supple CERVICAL SPINE: No pain with cervical ROM and No Cervical spine tenderness Chest: COMMONS NORMALS: normal inspection of the chest and normal palpation of entire chest wall Resp: COMMON NORMALS: normal respiratory effort, No retractions, No use of accessory muscles and clear to auscultation bilaterally AUSCULTATION: clear to auscultation bilaterally Cardio: COMMON NORMALS: regular rate, regular rhythm and No murmurs present (Cardio) RATE: regular rate RHYTHM: regular rhythm Extremity: NARRATIVE EXTREMITY EXAM: Abrasion noted to right hand tenderness noted to left shoulder Neuro: COMMON NORMALS: moves all extremities and no focal motor deficits Psych: COMMON NORMALS: mental status grossly normal, Normal thought process present and cooperative THOUGHT PROCESS: Normal thought process present Skin: COMMON NORMALS: no rashes or lesions noted and no wounds GENERAL SKIN EXAM: no rashes or lesions noted Course Vital Signs: Vital signs: Vital Signs Temperature 97.9 F 01/18/24 11:35 Pulse Rate 85 01/18/24 12:00 Respiratory Rate 16 01/18/24 11:35 Blood Pressure 128/84 01/18/24 12:00 Pulse Oximetry 95 01/18/24 12:00 Oxygen Delivery Me thod Room Air 01/18/24 12:00 MDM - Fall Medical Decision Making Patient presents with clavicle fracture from a fall no other injuries noted we will place her in a sling follow-up with Ortho return if worsening. Medical Records I reviewed the patient's medical records. Lab Data Radiology Impressions Head CT 01/18/24 12:03 IMPRESSION: 1. No acute intracranial findings. 2. Mild left frontal scalp soft tissue thickening. All radiology interpretation(s) finalized by discharge Discharge Plan Discharge Patient Disposition: Home Clinical Impression: Acromial fracture Condition: Stable Prescriptions: No Action levetiracetam [Keppra] 750 mg tablet 1,500 mg PO BID Vimpat 200 mg tablet 200 mg PO BID valproic acid 250 mg capsule 750 mg PO TID diazepam 5-7.5-10 mg kit See Rx Instructions .ROUTE .COMPLEX Rx Instructions: give 5mg rectally NEEDED FOR seizure greater THAN FIVE minutes. 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
--- NOTE | 2024-01-18 12:03 | XR_ITS ---
WS: [id number] Exam: XR shoulder LT min 2V* [id number] Date/Time of Exam: 01/18/2024 12:06 PM Reason For Exam: injury There is a nondisplaced fracture of the acromion noted on the Y view of the shoulder. No other fractu res. No dislocation. Normal soft tissues. IMPRESSION: 1. Nondisplaced acromial fracture.
--- NOTE | 2024-01-18 12:03 | XR_ITS ---
WS: [id number] Exam: XR hand RT min 3V* [id number] Date/Time of Exam: 01/18/2024 12:06 PM Reason For Exam: injury Findings: No fractures, soft tissue swelling, or unusual calcifications are noted. The hand shows normal bony alignment. There is no irregularity of the bony architecture. IMPRESSION: Normal RIGHT hand.
--- NOTE | 2024-01-18 12:03 | CTR_ITS ---
PROCEDURE INFORMATION: Exam: CT Head Without Contrast Exam date and time: 01/18/2024 12:21 PM Age: 23 years old Clinical indication: Injury or trauma; Fall; Laceration; Without residual foreign body; Other: Top of head TECHNIQUE: Imaging protocol: Computed tomography of the head without contrast. Radiation optimization: All CT scans at this facility use at least one of these dose optimization techniques: automated exposure control; mA and/or kV adjustment per patient size (includes targeted exams where dose is matched to clinical indication); or iterative reconstruction. COMPARISON: 1. CT head wo con* [id number] 07/28/2021 2:[address] head wo con* [id number] 08/04/2023 12:03 PM RADIATION DOSE METRICS: Total DLP (mGy-cm): 1136.74 FINDINGS: Brain: Stable diffuse cerebral and cerebellar volume loss. No hemorrhage. Unremarkable white matter. No mass effect. Cerebral ventricles: No ventriculomegaly. Paranasal sinuses: Visualized sinuses are unremarkable. No fluid levels. Mastoid air cells: Visualized mastoid air cells are well aerated. Bones/joints: Unremarkable. No acute fracture. Soft tissues: Mild left frontal scalp soft tissue thickening. CT/CT head wo con* [id number] IMPRESSION: 1. No acute intracranial findings. 2. Mild left frontal scalp soft tissue thickening.
--- NOTE | 2024-01-18 13:02 | DCPLANNER ---
Message sent to Vilma Pat to follow up with acromion fracture-
[2024-01-18 13:30] VITALS: BP 127/84; PULSE 76; RESP 16; O2SAT 100
== END 2024-01-18 13:31 | disposition home or self-care (01) ==
PROVIDERS: Emergency Provider Emergency Medicine; PCP Internal Medicine
DX: S42.122A Displaced fracture of acromial process, left shoulder, initial encounter for closed fracture (principal); S60.511A Abrasion of right hand, initial encounter; S40.212A Abrasion of left shoulder, initial encounter; S00.01XA Abrasion of scalp, initial encounter; W19.XXXA Unspecified fall, initial encounter
CPT/HCPCS: 70450; 73030; 73130; 99284

== ENCOUNTER → 2024-01-23 13:49 | Outpatient (BNVA) | payer MEDICAID, SELFPAY | PROVIDERS: PCP Internal Medicine; Visit Provider Specialist | DX: S42.125A Nondisplaced fracture of acromial process, left shoulder, initial encounter for closed fracture; W19.XXXA Unspecified fall, initial encounter | CPT/HCPCS: 73030; 99204 ==

== ENCOUNTER 2024-02-10 20:04 | Emergency (ER) | payer MEDICAID, SELFPAY ==
[2024-02-10 20:05] VITALS: BP 114/79; PULSE 79; RESP 16; TEMP 36.2; O2SAT 100; BMI 25.3
--- NOTE | 2024-02-10 20:22 | W.ED.FALL ---
HPI - Fall General: Chief Complaint: Fall Stated Complaint: FALL Time Seen by Provider: 02/10/24 20:21 History of Present Illness: Patient presents to the ER by EMS with c-collar in place. Patient has a history of seizures and patient has seizure and had a controlled fall to the ground. EMS placed c-collar on patient due to her nonverbal ability and her mom saying she probably has some neck pain. It is all back to her normal self per her mother. Review of Systems General: Reports: 10 or more systems reviewed and unremarkable except in HPI and below PFSH ED PFSH: Medical History Seizures Learning disability Surgical History Gastrostomy tube in place removed 10/13/20 Family History Sister Cancer breast Other CAD (coronary artery disease) Denies family history of Diabetes Anesthesia complication Bleeding disorder Social History Smoking and tobacco/nicotine status: never used tobacco/nicotine Alcohol intake: never Substance/Drug Use: never Household members: family Marital status: Single Current occupational status: disabled Physical Exam Const: COMMON NORMALS: no acute distress, average body habitus, healthy appearing, alert and well nourished HENMT: COMMON NORMALS: normocephalic, atraumatic, hearing grossly normal bilaterally, external ears normal and Normal external nose present HEAD & SCALP: normocephalic and atraumatic NOSE: Normal external nose present EXTERNAL EAR: Yes external ears normal Neck/C-Spine: COMMON NORMALS: no JVD OTHER: C-collar in place Chest: COMMONS NORMALS: normal inspection of the chest and normal palpation of entire chest wall Resp: COMMON NORMALS: normal respiratory effort, No retractions, No use of accessory muscles and clear to auscultation bilaterally AUSCULTATION: clear to auscultation bilaterally Cardio: COMMON NORMALS: no JVD, regular rate, regular rhythm, S1 normal heart sound present, S2 normal heart sound present, No gallops present (Cardio), No clicks present (Cardio), No murmurs present (Cardio) and No rub (Cardio) RATE: regular rate RHYTHM: regular rhythm HEART SOUNDS: S1 normal heart sound present and S2 normal heart sound present GI: COMMON NORMALS: Normal to inspection, nondistended, normoactive bowel sounds present, Soft to palpation, non-tender, No hepatosplenomegaly present and no masses PALPATION: Yes Soft to palpation and Yes No hepatosplenomegaly present Neuro: SENSORIUM/ORIENTATION: Yes alert Course Vital Signs: Vital signs: Vital Signs Temperature 97.1 F L 02/10/24 20:05 Pulse Rate 79 02/10/24 20:05 Respiratory Rate 16 02/10/24 20:05 Blood Pressure 114/79 02/10/24 20:05 Pulse Oximetry 100 02/10/24 20:05 Oxygen Delivery Me thod Room Air 02/10/24 20:05 MDM - Fall Medical Decision Making C-collar was left in place and patient had a CT of her head and cervical spine that showed no acute abnormalities, c-collar was removed. These was discussed with her mother. Patient be discharged to follow-up with her PCP. Lab Data Radiology Impressions Cervical Spine CT 02/10/24 20:45 IMPRESSION: No acute findings. Head CT 02/10/24 20:45 IMPRESSION: No acute intracranial abnormality. All radiology interpretation(s) finalized by discharge Discharge Plan Discharge Patient Disposition: Home Clinical Impression: Seizure, Acute neck pain Fall Qualifiers: Encounter type: initial encounter Qualified Code(s): W19.XXXA - Unspecified fall, initial encounter Condition: Stable Prescriptions: No Action levetiracetam [Keppra] 750 mg tablet 1,500 mg PO BID Vimpat 200 mg tablet 200 mg PO BID valproic acid 250 mg capsule 750 mg PO TID diazepam 5-7.5-10 mg kit See Rx Instructions .ROUTE .COMPLEX Rx Instructions: give 5mg rectally NEEDED FOR seizure greater THAN FIVE minutes. MAY REPEAT ONCE AFTER 10 minutes if seizure persists Discharge Orders: Discharge ED (Routine); Ordered 02/10/24 Ordered By: Froylan Romero Referrals: Keesha Jorgensen [Primary Care Provider] - Patient Instructions: Acute Neck Pain (ED) Activity Restrictions/Additional Instructions: CT scan of your head and neck was read off as no acute changes, your neck may be sore more from muscle pain and stiffness. Please consider [id number] Tylenol and/or Advil usage if these are acceptable with your other medications. Please follow-up with your family proximal physician within next 7 days for further evaluation and treatment as needed. 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
--- NOTE | 2024-02-10 20:45 | CTR_ITS ---
PROCEDURE INFORMATION: Exam: CT Head Without Contrast Exam date and time: 02/10/2024 8:53 PM Age: 23 years old Clinical indication: Injury or trauma; Blunt trauma (contusions or hematomas); Patient HX: Seizure with fall. Patient struck frontal. Contusion to left orbit. Endorses diffuse neck pain. C collar in place. ; Additional info: Fall seizure TECHNIQUE: Imaging protocol: Computed tomography of the head without contrast. Radiation optimization: All CT scans at this facility use at least one of these dose optimization techniques: automated exposure control; mA and/or kV adjustment per patient size (includes targeted exams where dose is matched to clinical indication); or iterative reconstruction. COMPARISON: CT head wo con* [id number] 01/18/2024 12:21 PM RADIATION DOSE METRICS: Total DLP (mGy-cm): 1121.43 FINDINGS: Brain: Normal. No hemorrhage. Unremarkable white matter. No mass effect. Cerebral ventricles: No ventriculomegaly. Paranasal sinuses: Visualized sinuses are unremarkable. No fluid levels. Mastoid air cells: Visualized mastoid air cells are well aerated. Bones: Unremarkable. No acute fracture. Soft tissues: Left lateral scalp contusion. CT/CT head wo con* [id number] IMPRESSION: No acute intracranial abnormality.
--- NOTE | 2024-02-10 20:45 | CTR_ITS ---
PROCEDURE INFORMATION: Exam: CT Cervical Spine Without Contrast Exam date and time: 02/10/2024 8:55 PM Age: 23 years old Clinical indication: Injury or trauma; Blunt trauma; Patient HX: Seizure with fall. Patient struck frontal. Contusion to left orbit. Endorses diffuse neck pain. C collar in place. ; Additional info: Fall neck pain TECHNIQUE: Imaging protocol: Computed tomography of the cervical spine without contrast. Radiation optimization: All CT scans at this facility use at least one of these dose optimization techniques: automated exposure control; mA and/or kV adjustment per patient size (includes targeted exams where dose is matched to clinical indication); or iterative reconstruction. COMPARISON: CT cervical spin wo con* [id number] 08/04/2023 12:03 PM RADIATION DOSE METRICS: Total DLP (mGy-cm): 144.57 FINDINGS: Bones: No acute fracture. Normal alignment. No significant disc bulge or herniation. No severe spinal canal stenosis. No significant neural foraminal narrowing. Lungs: Lung apices are normal. Soft tissues: Unremarkable. CT/CT cervical spin wo con* [id number] IMPRESSION: No acute findings.
[2024-02-10 22:23] VITALS: BP 109/77; PULSE 81; O2SAT 98
== END 2024-02-10 22:18 | disposition home or self-care (01) ==
PROVIDERS: Emergency Provider Emergency Medicine; PCP Internal Medicine
DX: R56.9 Unspecified convulsions (principal); M54.2 Cervicalgia
CPT/HCPCS: 70450; 72125; 99284